=== PATIENT | male | born 1995 | race Caucasian/White ===

== ENCOUNTER 2020-12-28 12:04 | Emergency (ER) | payer OTHER ==
[~2020-12-28] VITALS: Ht 175.3 cm; Wt 80.0 kg
[2020-12-28 12:10] VITALS: BP 166/95
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
[2020-12-28] MEDS ORDERED: DIPH,PERTUSS(ACELL),TET VAC/PF 0.5 ML SYRINGE. VAX IM ONE (12:45)
== END 2020-12-28 12:46 | disposition home or self-care (01) ==
LOC: ER 12:04
DX: S60.811A Abrasion of right wrist, initial encounter (principal); Z88.0 Allergy status to penicillin; W50.4XXA Accidental scratch by another person, initial encounter; Y93.89 Activity, other specified; Y92.89 Other specified places as the place of occurrence of the external cause; Y99.0 Civilian activity done for income or pay
CPT/HCPCS: 90471; 90715; 99283